=== PATIENT | male | born 1995 | race Caucasian/White ===

== ENCOUNTER 2025-10-21 08:27 | Outpatient (CLI) | payer BC | END 2025-10-21 08:28 | disposition home or self-care (01) | LOC: CSHSLEEP 08:27 | PROVIDERS: ATTEND Family Medicine | DX: G47.33 Obstructive sleep apnea (adult) (pediatric) (principal); F51.9 Sleep disorder not due to a substance or known physiological condition, unspecified; G47.10 Hypersomnia, unspecified; G47.9 Sleep disorder, unspecified; R53.83 Other fatigue; E66.9 Obesity, unspecified; Z68.33 Body mass index [BMI] 33.0-33.9, adult; R06.83 Snoring | CPT/HCPCS: 95800 ==